=== PATIENT | female | born 1945 | race African-American/Black ===

== ENCOUNTER 2019-03-05 05:23 | Inpatient (IN) ==
[2019-03-05] MEDS ORDERED: ceFAZolin 1,000 MG VIAL ONE (05:51)
[2019-03-05] MEDS ORDERED: VANCOMYCIN 1,000 MG VIAL ONE (05:51)
[2019-03-05] MEDS ORDERED: VANCOMYCIN INJ 1,000 MG in SODIUM CHLORIDE 0.9% 250 ML IV ONE (06:00)
[2019-03-05] MEDS ORDERED: ceFAZolin 1,000 MG in SYRINGE 1 EACH IV ONE (06:00)
[2019-03-05] MEDS ORDERED: BACITRACIN OINT 0.9 GM PACK TOP ONE (06:50)
[2019-03-05] MEDS ORDERED: LIDOCAINE 1% 5 ML VIAL ONE (07:18)
[2019-03-05] MEDS ORDERED: DEXAMETHASONE 4 MG/1 ML VIAL ONE (07:18)
[2019-03-05] MEDS ORDERED: BUPIVACAINE MPF 0.5% /EPI 30 ML VIAL ONE (07:18)
[2019-03-05] MEDS ORDERED: DIAZEPAM 5 MG TABLET PO STA (07:20)
[2019-03-05] MEDS ORDERED: FAMOTIDINE 20 MG TABLET PO ONE (07:21)
[2019-03-05] MEDS ORDERED: DIAZEPAM 5 MG TABLET ONE (07:22)
[2019-03-05] MEDS ORDERED: FAMOTIDINE 20 MG TABLET ONE (07:22)
[2019-03-05] MEDS ORDERED: LACTATED RINGERS 1,000 ML IV SCH (07:30)
[2019-03-05] MEDS ORDERED: DEXMEDETOMIDINE 200 MCG/2 ML VIAL ONE (07:35)
[2019-03-05] MEDS ORDERED: MORPHINE 4 MG/1 ML VIAL IV PRN ×2 (08:43)
[2019-03-05] MEDS ORDERED: MAGNESIUM HYDROXIDE SUSP 30 ML UDCUP PO PRN (08:43)
[2019-03-05] MEDS ORDERED: ZALEPLON 5 MG CAPSULE PO PRN (08:43)
[2019-03-05] MEDS ORDERED: ONDANSETRON 4 MG/2 ML VIAL IV PRN (08:43)
[2019-03-05] MEDS ORDERED: diphenhydrAMINE CAP 25 MG CAPSULE PO PRN (08:43)
[2019-03-05] MEDS ORDERED: TRANEXAMIC ACID 1,000 MG/10 ML VIAL ONE (08:54)
[2019-03-05] MEDS ORDERED: BUPIVACAINE SPINAL 0.75% 2 ML AMP SPINAL ONE (10:20)
[2019-03-05] MEDS ORDERED: MIDAZOLAM 2 MG/2 ML VIAL ONE (10:20)
[2019-03-05] MEDS ORDERED: LACTATED RINGERS 1,000 ML IV ONE (10:21)
[2019-03-05] MEDS ORDERED: PHENYLEPHRINE 1 MG/10 ML SYRINGE IV ONE (10:21)
[2019-03-05] MEDS ORDERED: ACETAMINOPHEN 1,000 MG/100 ML VIAL IV ONE (10:21)
[2019-03-05] MEDS ORDERED: fentaNYL 100 MCG/2 ML VIAL ONE (10:21)
[2019-03-05 10:24] LABS: Apearance,Urine CLEAR (Clear); Bacteria,Urine Occasional /HPF (Few); Bilirubin,Urine Negative (Negative); Blood, Urine Negative (Negative); Glucose,Urine (UA) Negative (Negative); Ketones,Urine Negative (Negative); Nitrite,Urine Negative (Negative); Protein,Urine Negative; RBC,Urine 1 /HPF (0-4); Urine Color Yellow (Yellow); Urine Specific Gravity 1.008 (1.001-1.035); Urine Urobilinogen < 2.0 EU/DL (0.2-1.0); WBC,Urine 1 /HPF (0-6)
[2019-03-05] MEDS: LACTATED RINGERS 1,000 ML IV SCH ×2 (11:31→22:23)
[2019-03-05] MEDS: ALBUTEROL/IPRATROPIUM 3 ML NEB RESP TX SCH ×2 (12:04→20:13)
[2019-03-05] MEDS: DOCUSATE SODIUM 100 MG CAPSULE PO SCH ×2 (12:07→21:09)
[2019-03-05] MEDS: MONTELUKAST 10 MG TABLET PO SCH (12:07)
[2019-03-05] MEDS: KETOROLAC 15 MG/1 ML VIAL IV SCH ×3 (12:07→23:45)
[2019-03-05] MEDS: ceFAZolin 1,000 MG in SYRINGE 1 EACH IV SCH ×2 (12:46→21:09)
[2019-03-05] MEDS: PANTOPRAZOLE 40 MG TABLET PO SCH (21:09)
[2019-03-05] MEDS: ATORVASTATIN 80 MG TABLET PO SCH (21:09)
[2019-03-06] MEDS: LACTATED RINGERS 1,000 ML IV SCH ×2 (01:27→06:01)
[2019-03-06] MEDS: FONDAPARINUX 2.5 MG/0.5 ML SYRINGE SUBCUT SCH (03:59)
[2019-03-06] MEDS: KETOROLAC 15 MG/1 ML VIAL IV SCH (05:50)
[2019-03-06 06:24] LABS: Basophils % 0.3 % (0.0-0.8); Eosinophils % 0.2 % (0.00-10.9); Hematocrit 28.5 VOL% (35.7-47.0); Hemoglobin 9.1 GM/DL (12.0-16.0); Immature Granulocytes % 0.3 %; Immature Granulocytes Absolute 0.03 #; Lymphocytes # 1.4 10*3/uL (1.4-4.0); Lymphocytes % 14.2 % (21.3-54.2); Mean Corpuscular HGB Conc 31.9 GM/DL (32-36); Mean Corpuscular Volume 95.6 FL (87-102); Mean Platelet Volume 10.1 FL (9.6-12.0); Monocytes % 9.9 % (1.7-12.7); Neutrophils % 75.1 % (38.7-73.9); Platelet Count 154 T/CUMM (130-400); Red Blood Count 2.98 MC/CUMM (3.8-5.5); Red Cell Distribution Width 13.1 % (9.3-17.3); White Blood Count 9.9 T/CUMM (4-12)
[2019-03-06 06:37] LABS: Calcium 7.9 MG/DL (8.5-10.1); Osmolality,Calculated 278.4 MOS/KG (273-304)
[2019-03-06] MEDS: ALBUTEROL/IPRATROPIUM 3 ML NEB RESP TX SCH ×2 (07:21→19:35)
[2019-03-06] MEDS: DOCUSATE SODIUM 100 MG CAPSULE PO SCH ×2 (10:29→20:52)
[2019-03-06] MEDS: EZETIMIBE 10 MG TABLET PO SCH (10:30)
[2019-03-06] MEDS: MONTELUKAST 10 MG TABLET PO SCH (10:30)
[2019-03-06] MEDS: LOSARTAN 25 MG TABLET PO SCH (10:30)
[2019-03-06] MEDS: BUDESONIDE/FORMOTEROL 160-4.5 INHALER 6 GM INH SCH (10:31)
[2019-03-06] MEDS: CELECOXIB 200 MG CAPSULE PO SCH (14:56)
[2019-03-06] MEDS: ATORVASTATIN 80 MG TABLET PO SCH (20:52)
[2019-03-06] MEDS: PANTOPRAZOLE 40 MG TABLET PO SCH (20:52)
[2019-03-07] MEDS: FONDAPARINUX 2.5 MG/0.5 ML SYRINGE SUBCUT SCH (02:21)
[2019-03-07 05:36] LABS: Basophils % 0.3 % (0.0-0.8); Eosinophils # 0.1 10*3/uL (0.0-0.87); Eosinophils % 1.4 % (0.00-10.9); Hematocrit 27.2 VOL% (35.7-47.0); Hemoglobin 8.6 GM/DL (12.0-16.0); Immature Granulocytes % 0.4 %; Immature Granulocytes Absolute 0.03 #; Lymphocytes # 1.9 10*3/uL (1.4-4.0); Lymphocytes % 25.5 % (21.3-54.2); Mean Corpuscular HGB Conc 31.6 GM/DL (32-36); Mean Corpuscular Volume 96.1 FL (87-102); Mean Platelet Volume 10.1 FL (9.6-12.0); Monocytes % 12.5 % (1.7-12.7); Neutrophils % 59.9 % (38.7-73.9); Platelet Count 151 T/CUMM (130-400); Red Blood Count 2.83 MC/CUMM (3.8-5.5); Red Cell Distribution Width 13.4 % (9.3-17.3); White Blood Count 7.4 T/CUMM (4-12)
[2019-03-07] MEDS: ALBUTEROL/IPRATROPIUM 3 ML NEB RESP TX SCH (08:29)
[2019-03-07] MEDS: LOSARTAN 25 MG TABLET PO SCH (09:42)
[2019-03-07] MEDS: DOCUSATE SODIUM 100 MG CAPSULE PO SCH (09:42)
[2019-03-07] MEDS: EZETIMIBE 10 MG TABLET PO SCH (09:42)
[2019-03-07] MEDS: MONTELUKAST 10 MG TABLET PO SCH (09:42)
[2019-03-07] MEDS: BUDESONIDE/FORMOTEROL 160-4.5 INHALER 6 GM INH SCH (09:42)
[2019-03-07] MEDS: CELECOXIB 200 MG CAPSULE PO SCH (09:42)
[2019-03-07 11:56] VITALS: BP 112/67
== END 2019-03-07 12:35 | disposition home health service (06) | DRG 470 ==
LOC: N.SDSINP 05:23 → N.3E 09:15
PROVIDERS: ADMIT Orthopaedic Surgery; ATTEND Orthopaedic Surgery